=== PATIENT | female | born 1960 | race Caucasian/White ===

== ENCOUNTER 2024-04-26 16:01 | Outpatient (CLI) | payer MEDICARE, SELFPAY | END 2024-04-26 23:59 | disposition home or self-care (01) | PROVIDERS: PCP Family Medicine; Visit Provider Family Medicine | DX: T81.40XA Infection following a procedure, unspecified, initial encounter (principal) | CPT/HCPCS: 87070; 87077; 87186; 87205 ==

== ENCOUNTER 2024-04-27 15:50 | Emergency (ER) | payer MEDICARE, SELFPAY ==
[2024-04-27] VITALS (7 sets, daily range): BP systolic 110–136; BP diastolic 56–72; PULSE 90–102; RESP 16–18; TEMP 36.8; O2SAT 97–98; BMI 42.0
--- NOTE | 2024-04-27 15:58 | ED_ITS ---
<Statement entered by Saleem Sousa MD - 04/27/24 22:59> I was consulted by the PRATIMA, and we discussed the complexity of the problems being addressed. I approved the treatment and management plan for this patient's care in the emergency department, thus performing a substantive portion of the medical decision making. Saleem Sousa MD, RADHA, FACEP Discharge Plan Disposition Chief Complaint: Skin/Abscess/Foreign Body Referrals Follow up/Referrals: Danuta Cyr APRN [Primary Care Provider] - See instructions Clinical Impressions Clinical Impression: Sepsis without septic shock Post-operative infection Qualifiers: Encounter type: initial encounter Postoperative infection type: sepsis Q ualified Code(s): T81.44XA - Sepsis following a procedure, initial encounter Stand Alone Forms Stand Alone Forms: Transfer Record - ED Discharge ED Provider: Saleem Sousa General Adult HPI General Chief complaint: Skin/Abscess/Foreign Body Stated complaint: infection in Lt Knee Time Seen by Provider: 04/27/24 15:58 History of Present Illness HPI narrative: Patient presents for evaluation of nausea vomiting. 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 She she has been in rehabilitation since but over the last couple of days reports feeling very much weaker and focally today she is required assistance with transfers where she was able to do it on her own power previously and started having nausea vomiting cold chills sweats. She denies fever hemoptysis hematochezia melena hematemesis hematuria diarrhea. Related Data Allergies Allergy/AdvReac Type Severity Reaction Status Date / Time Penicillins Allergy Verified 04/27/24 17:27 Sulfa (Sulfonamide Allergy Verified 04/27/24 17:27 Antibiotics) vancomycin Allergy Verified 04/27/24 17:27 [facility] Disclaimer: The information contained in this section may have been updated after the patient was seen, as this information can be updated by other users. Social History (Updated 04/27/24 @ 17:21 by DARLENE Beyer) Smoking Status: Never smoker alcohol intake: never current occupational status: disabled Travel in the last 8 weeks: None ROS Obtained: Yes Systems reviewed as appropriate & no additional complaints except as documented Physical Exam General General appearance: alert and in no apparent distress Respiratory Respiratory exam: Present normal lung sounds bilaterally Cardiovascular Cardiovascular exam: Present regular rate and normal rhythm Expanded Lower Extremity Exam Left: Leg image: 2 1. Amputation point. The thickened erythema with eschar and fibrinous debris visible between the mary with some serosanguineous drainage at the medial margin of the suture line Neurological Exam Neurological exam: Present alert, oriented X3 and CN II-XII intact Medical Decision Making Medical Records Medical records reviewed: Yes I reviewed the patient's medical records. Antonio Inquiry Pt receiving controlled substance: No Vital Signs: 04/27/24 15:50 04/27/24 16:30 04/27/24 17:00 Temperature 98.2 F Temperature Source Oral Pulse Rate [Right Radial] 90 Respiratory Rate 16 Blood Pressure 125/60 126/65 Blood Pressure [Right Arm] 130/56 L Blood Pressure Mean 84 85 Blood Pressure Mean [Right Arm] 80 Blood Pressure Source [Right Arm] Automatic Cuff Blood Pressure Position [Right Arm] Sitting 02 Sat by Pulse Oximetry 98 Oxygen Delivery Method Room Air 04/27/24 17:30 04/27/24 18:00 Temperature Temperature Source Pulse Rate [Right Radial] Respiratory Rate Blood Pressure 135/68 118/72 Blood Pressure [Right Arm] Blood Pressure Mean 84 87 Blood Pressure Mean [Right Arm] Blood Pressure Source [Right Arm] Blood Pressure Position [Right Arm] 02 Sat by Pulse Oximetry Oxygen Delivery Method Lab Data Lab results reviewed: Yes I reviewed the patient's lab results. Lab Results 04/27/24 16:22: WBC 17.5 H, RBC 3.79 L, Hgb 10.6 L, Hct 31.8 L, MCV 84.0, MCH 28.0, MCHC 33.4, RDW 18.0 H, Plt Count 373, MPV 7.3 L, Neut % (Auto) 86.8 H, L ymph % (Auto) 6.5 L, Vance % (Auto) 5.9, Eos % (Auto) 0.6, Baso % (Auto) 0.2, N eut # (Auto) 15.2 H, Lymph # (Auto) 1.1, Vance # (Auto) 1.0, Eos # (Auto) 0.1, Baso # (Auto) 0.0, Total Counted 100, Neutrophils % (Manual) 91 H, Lymphocytes % (Manual) 7 L, Monocytes % (Manual) 2, Platelet Estimate Normal, RBC Morphology Normal, ESR 94 H, Sodium 127 L, Potassium 4.3, Chloride 95 L, Carbon Dioxide 25, Anion Gap 11.3, BUN 24 H, Creatinine 1.20 H, Estimated Creat Clear 39, Estimated GFR 45 L, Est GFR ( Amer) 55 L, Glucose 285 H, Hemoglobin A1c 7.6 H, C alcium 8.3 L, Magnesium 1.5 L, Total Bilirubin 1.2, AST 22, ALT 18, Alkaline Phosphatase 103, C-Reactive Protein 297.9 H, Total Protein 6.5, Albumin 3.2 L, G lobulin 3.3 H, Albumin/Globulin Ratio 1.0 L, Acetone Level None detected 04/27/24 16:25: VBG pH 7.43 H, VBG pCO2 35.0, VBG pO2 45.6 H, VBG HCO3 22.6 L, VBG Total CO2 23.7, VBG O2 Saturation 82.4 H, VBG Base Excess -1.7, VBG Lactic Acid 1.5 04/27/24 16:22 04/27/24 16:22 Orders (Tests/Meds): ED MEDICATIONS Generic Name Dose Route Start Last Admin Trade Name Freq PRN Reason Stop Dose Admin Lactated Ringer's 1,570 mls @ 785 mls/hr 04/27/24 17:21 04/27/24 17:58 Lactated Ringer's 1000 Ml Bag 30 ml/kg infuse over 2 hr (1570 ml) 04/27/24 19:20 785 mls/hr IV Administration .Q2H ONE Cefepime HCl 2 gm/ Sodium 100 mls @ 200 mls/hr 04/27/24 18:58 Chloride IV 04/27/24 19:27 ONCE ONE Clindamycin Phosphate 900 mg in 50 mls @ 100 mls/hr 04/27/24 19:00 Clindamycin 900mg/50ml D5w Premix IV 04/27/24 19:29 ONCE ONE Metronidazole 500 mg in 100 mls @ 100 mls/hr 04/27/24 19:00 Flagyl 500mg/100ml Ivpb IV 04/27/24 19:59 ONCE ONE Miscellaneous 1 each 04/27/24 17:30 04/27/24 17:25 Vancomycin Consult Request NOTAPPLIC 05/27/24 17:29 1 each CONSULT PHARMACY REBA Administration Discontinued Medications Generic Name Dose Route Start Last Admin Trade Name Freq PRN Reason Stop Dose Admin Lactated Ringer's 1,000 mls @ 999 mls/hr 04/27/24 16:09 04/27/24 16:34 Lactated Ringer's 1000 Ml Bag IV 04/27/24 17:09 999 mls/hr .Q1H1M ONE Administration Magnesium Sulfate 2 gm in 50 mls @ 50 mls/hr 04/27/24 17:07 04/27/24 17:58 Magnesium Sulfate 2gm/50ml Premix IV 04/27/24 18:06 50 mls/hr ONCE ONE Administration Iopamidol 120 ml 04/27/24 17:19 04/27/24 17:21 Iopamidol-370 (76%);100ml Bottle IV 04/27/24 17:20 120 ml ONCE ONE Administration Ondansetron HCl 4 mg 04/27/24 16:06 04/27/24 16:34 Ondansetron 4mg/2ml Vial IV 04/27/24 16:07 4 mg ONCE ONE Administration Oxycodone HCl 5 mg 04/27/24 17:08 04/27/24 17:11 Oxycodone 5mg Immediate Release Tablet PO 04/27/24 17:09 5 mg ONCE ONE Administration Promethazine HCl 25 mg 04/27/24 17:27 04/27/24 17:58 Promethazine Hcl 25mg/Ml 1ml Vial IV 04/27/24 17:28 25 mg ONCE ONE Administration Sodium Chloride 50 ml 04/27/24 17:19 04/27/24 17:21 0.9 % Sodium Chloride 50 Ml Vial IV 04/27/24 17:20 50 ml ONCE ONE Administration Sodium Chloride 10 ml 04/27/24 17:19 04/27/24 17:21 Sodium Chloride 0.9% 10ml Syr (Rad Only) IV 04/27/24 17:20 10 ml ONCE ONE Administration ORDERS Category Date Time Status CT knee LT w con Stat Cat Scan 04/27/24 16:06 Completed Acetone, Serum (Rapid) Stat Lab 04/27/24 16:22 Completed CBC w/Auto Diff [Complete Blood Count Auto Diff] Stat Lab 04/27/24 16:22 Completed CMP [Comprehensive Metabolic Panel] Stat Lab 04/27/24 16:22 Completed CRP [C-Reactive Protein] Stat Lab 04/27/24 16:22 Completed ESR [Erythrocyte Sedimentation Rate] Stat Lab 04/27/24 16:22 Completed Hemoglobin A1C Stat Lab 04/27/24 16:22 Completed Magnesium Stat Lab 04/27/24 16:22 Completed UA [Urinalysis and Microscopic] Stat Lab 04/27/24 16:07 Ordered Blood Culture Stat Micro 04/27/24 16:29 Received VBG [Venous Blood Gas] Stat RT 04/27/24 16:25 Completed Tissue Perfus/Sepsis Re-Eval Sepsis Re-Evaluation Performed: Yes Date Performed: 04/27/24 Time Performed: 17:18 Medical Decision Narrative: In summary patient is a 64-year-old female who presents to the emergency department for evaluation of postoperative wound infection. Patient is hemodynamically stable upon arrival, afebrile. Physical exam is remarkable for cellulitis distally of the stump with eschar along the staple line along with some fibrinous material seen between the mary and serosanguineous drainage at the medial margin of the staple line. Differential diagnosis includes cellulitis versus abscess versus necrotizing infection. Initial workup will be conducted with hematologic labs blood cultures CT scan of the left lower extremity is very worrisome for necrotizing infection as there is lots of subcutaneous gas much larger than when expect this far out from surgery is more consistent with infection. Her LRINEC score is 10 making this very worrisome for necrotizing infection. Initial interventions include crystalloid bolus Toradol Tylenol Zofran. Initial workup reviewed by me shows she has an elevated white count and elevated inflammatory markers consistent with sepsis and impaired renal function although I do not have a baseline to compare to. Patient also has hyponatremia and hyperglycemia consistent with sepsis as well. I had an interactive discussion with the [facility] transfer center and patient has been accepted to [facility] main care of Dr. Pablo. I have updated them on the findings of the CT scan and we are flying the patient ou. t patient has received a sepsis bolus and has been started on linezolid cefepime clindamycin and Flagyl. Critical Care Critical Care Time Critical Care Time: No
--- NOTE | 2024-04-27 16:06 | CT_ITS ---
PROCEDURE INFORMATION: Exam: CT Left Lower Extremity With Contrast, Knee Exam date and time: 04/27/2024 5:20 PM Age: 64 years old Clinical indication: Other: Postop infection TECHNIQUE: Imaging protocol: CT of the left lower extremity with intravenous contrast was performed. Exam focused on the knee. Radiation optimization: All CT scans at this facility use at least one of these dose optimization techniques: automated exposure control; mA and/or kV adjustment per patient size (includes targeted exams where dose is matched to clinical indication); or iterative reconstruction. Contrast material: ISOVUE; Contrast volume: 120 ml; Contrast route: IV; COMPARISON: No relevant prior studies available. FINDINGS: Bones/joints: No current CT evidence for osteomyelitis. Soft tissues: Fairly extensive mottled soft tissue gas in and around the musculature at distal stump greater than expected for postoperative gas and suggesting infection with gas-forming organism. There is not a definable abscess. Vasculature: Severe atherosclerosis. Other findings: BKA. IMPRESSION: Fairly extensive mottled soft tissue gas in and around the musculature at distal stump greater than expected for postoperative gas and suggesting infection with gas-forming organism. There is not a definable abscess.
[2024-04-27 16:30] LABS: Lactate Venous 1.5 mmol/L (0.4-2.0); VBG Base Excess -1.7 mmol/L (-2.4-2.3); VBG HCO3 22.6 mmol/L (23-30); VBG Oxygen Saturation 82.4 % (50-70); VBG PH 7.43 mmol/L (7.31-7.41); VBG PO2 45.6 mmol/L (28-40); VBG Total CO2 23.7 mmol/L (23-27)
[2024-04-27] MEDS: LACTATED RINGERS 1000ML 1,000 ML 999 ML IV (16:34)
[2024-04-27] MEDS: ONDANSETRON 4MG/2ML VIAL 4 MG IV (16:34)
[2024-04-27 16:44] LABS: Basophils % 0.2 % (0.1-2.0); Eosinophils # 0.1 K/mm3 (0.0-0.4); Eosinophils % 0.6 % (0.1-12.0); Hematocrit 31.8 % (37.0-47.0); Hemoglobin 10.6 g/dL (12.2-16.2); Lymphocytes # 1.1 K/mm3 (0.7-4.5); Lymphocytes % 6.5 % (10-50); Mean Corpuscular HGB Conc 33.4 g/dL (31.8-35.4); Mean Platelet Volume 7.3 fl (7.4-10.4); Monocytes % 5.9 % (1.7-9.3); Neutrophils # 15.2 K/mm3 (1.8-7.8); Neutrophils % 86.8 % (37.0-80.0); Platelet Count 373 K/mm3 (142-424); Red Blood Count 3.79 M/mm3 (4.20-5.40); White Blood Count 17.5 K/mm3 (4.8-10.8)
[2024-04-27 16:45] LABS: Chloride 95 mmol/L (98-107); MANUAL DIFFERENTIAL MANUAL DIFFERENTIAL (MANUAL DIFF)
[2024-04-27 16:46] LABS: Potassium 4.3 mmoL/L (3.5-5.1); Sodium 127 mmol/L (136-145)
[2024-04-27 16:48] LABS: Alanine Aminotransferase 18 U/L (12-78); Aspartate Amino Transferase 22 U/L (14-36); Blood Urea Nitrogen 24 mg/dl (7-17); Creatinine Clearance Estimated 39 mL/min (50-200); Estimated Glomerular Filt Rate 45 ml/min (>60); GFR (African American) 55 ML/MIN (>60)
[2024-04-27 16:49] LABS: Albumin Level 3.2 g/dl (3.5-5.0); Alkaline Phosphatase 103 U/L (38-126); Anion Gap 11.3 mEq/L (5-15); Bilirubin,Total 1.2 mg/dl (0.2-1.3); Calcium 8.3 mg/dl (8.4-10.2); Carbon Dioxide 25 mmol/L (22.0-30.0); Globulin 3.3 g/dL (1.3-3.2); Glucose 285 mg/dl (74-100); Magnesium 1.5 mg/dl (1.6-2.3); Total Protein,Serum 6.5 g/dl (6.3-8.2)
[2024-04-27 16:54] LABS: C-Reactive Protein 297.9 mg/L (0-4)
[2024-04-27 16:58] LABS: Acetone, Serum (Rapid) None Detected (None Detect)
--- NOTE | 2024-04-27 17:07 | PC.NURSE ---
[facility] called for transfer for infected post op left knee and sepsis
[2024-04-27] MEDS: OXYCODONE 5MG IMMEDIATE RELEASE TABLET 5 MG PO (17:11)
[2024-04-27] MEDS: SODIUM CHLORIDE 0.9% 10ML SYR (RAD ONLY) 10 ML IV (17:21)
[2024-04-27] MEDS: IOPAMIDOL-370 (76%);100ML BOTTLE 120 ML IV (17:21)
[2024-04-27] MEDS: 0.9 % SODIUM CHLORIDE 50 ML VIAL IV (17:21)
[2024-04-27] MEDS: VANCOMYCIN CONSULT REQUEST 1 EACH NOTAPPLIC (17:25)
[2024-04-27 17:28] LABS: Lymphocytes % 7 % (10-50); Monocytes % 2 % (2-9); Neutrophils % 91 % (42-76); Platelet Estimate Normal; RBC Morphology Normal; Total Cells Counted 100
[2024-04-27 17:38] LABS: Erythrocyte Sedimentation Rate 94 mm/hr (0-30)
[2024-04-27] MEDS: MAGNESIUM SULFATE IN WATER 2 GM/50 ML PIGGYBACK IV (17:58)
[2024-04-27] MEDS: LACTATED RINGERS 1000ML 1,570 ML 785 ML IV (17:58)
[2024-04-27] MEDS: PROMETHAZINE HCL 25MG/ML 1ML VIAL 25 MG IV (17:58)
--- NOTE | 2024-04-27 18:00 | PC.NURSE ---
[facility] notified of transfer, as soon as truck is available they will be here for transfer
[2024-04-27 18:12] LABS: Hemoglobin A1C 7.6 % (4.0-6.0)
[2024-04-27] MEDS: CEFEPIME HCL 2 GM in 0.9 % SODIUM CHLORIDE 100 ML IV (19:14)
--- NOTE | 2024-04-27 19:16 | PC.NURSE ---
midlevel on phone with [facility] accepting doctor
--- NOTE | 2024-04-29 11:14 | PC.NURSE ---
BLOOD CULTURE RESULTS FAXED TO [facility] AT [phone]
== END 2024-04-27 19:35 | disposition short-term general hospital (02) ==
PROVIDERS: Physician Assistant; Emergency Provider Student in an Organized Health Care Education/Training Program; PCP Nurse Practitioner Family
DX: A41.1 Sepsis due to other specified staphylococcus (principal); T81.44XA Sepsis following a procedure, initial encounter; E87.1 Hypo-osmolality and hyponatremia; R11.2 Nausea with vomiting, unspecified; R73.9 Hyperglycemia, unspecified; Z89.512 Acquired absence of left leg below knee
CPT/HCPCS: 73701; 80053; 82009; 82803; 83036; 83735; 85007; 85025; 85027; 85651; 86140; 87040; 87186; 96361; 96365; 96366; 96375; 99285; J2405; J2550; J3475; J7120; Q9967